=== PATIENT | female | born 1945 ===

== ENCOUNTER 2020-09-16 12:55 | Day surgery (SDC) | payer MEDICARE ==
[~2020-09-16] VITALS: Ht 160 cm; Wt 64.0 kg
[~2020-09-16 12:55] MED LIST: EPHEDRINE 50 MG/ML, 1ML IVPush PRN; FENTANYL PF 100 MCG/2ML IV PRN; HYDROmorphone 1 MG/ML, 1ML INJ IVPush PRN; LABETALOL 5MG/ML, 20ML IV PRN; MULT-449 PO; ONDANSETRON 2MG/ML, 2ML IVPush PRN; OXYcodone 5 MG/5 ML ORAL.SOL UDC PO PRN; PROMETHAZINE 25 MG/ML, 1ML IVPush PRN; hydrALAzine 20 MG/ML, 1ML IV PRN; tylenol PO
[2020-09-16 13:17] VITALS: BP 143/88
[2020-09-16] MEDS ORDERED: CHLORHEXIDINE 15 ML UDC MM STA (13:20)
[2020-09-16] MEDS ORDERED: ACETAMINOPHEN 500 MG TABLET PO ONE (13:30)
[2020-09-16] MEDS ORDERED: LACTATED RINGERS 1,000 ML IV SCH (13:30)
[2020-09-16] MEDS ORDERED: FENTANYL PF 100 MCG/2ML ONE (13:37)
[2020-09-16] MEDS ORDERED: DEXAMETHASONE 4 MG/ML, 5ML ONE (14:19)
[2020-09-16] MEDS ORDERED: SODIUM CHLORIDE 0.9% PF 10ML ONE (14:19)
[2020-09-16] MEDS ORDERED: KETOROLAC 30 MG/1 ML ONE (14:19)
[2020-09-16] MEDS ORDERED: LIDOCAINE-MPF 2% ,5ML ONE (14:19)
[2020-09-16] MEDS ORDERED: CEFAZOLIN 1,000 MG ONE (14:19)
[2020-09-16] MEDS ORDERED: PROPOFOL 10 MG/ML, 20ML ONE (14:19)
[2020-09-16] MEDS ORDERED: ONDANSETRON 2MG/ML, 2ML ONE (14:19)
[2020-09-16] MEDS ORDERED: BUPIVACAINE/PF 0.25% INFIL ONE (14:37)
[2020-09-16] MEDS ORDERED: EPHEDRINE 50 MG/ML, 1ML ONE (14:42)
[2020-09-16] MEDS ORDERED: GLYCOPYRROLATE 0.2MG/1ML, 5ML ONE (14:44)
[2020-09-16] MEDS ORDERED: BUPIVACAINE/PF 0.25% ONE (15:39)
== END 2020-09-16 17:15 | disposition home or self-care (01) ==
LOC: OUT 12:55
PROVIDERS: ATTEND Orthopaedic Surgery Foot and Ankle Surgery
DX: S92.341A Displaced fracture of fourth metatarsal bone, right foot, initial encounter for closed fracture (principal); S92.351A Displaced fracture of fifth metatarsal bone, right foot, initial encounter for closed fracture; Z20.828 Contact with and (suspected) exposure to other viral communicable diseases; Z79.899 Other long term (current) drug therapy; W18.2XXA Fall in (into) shower or empty bathtub, initial encounter; Y93.E1 Activity, personal bathing and showering; Y92.091 Bathroom in other non-institutional residence as the place of occurrence of the external cause; Y99.8 Other external cause status
CPT/HCPCS: 28485; 73630; 93005; C1713; J0690; J1100; J1885; J2405; J2704; J3010; J7120; U0003; 76000